=== PATIENT | male | born 1980 | race Hispanic/Latino ===

== ENCOUNTER 2024-09-17 14:45 | Emergency (ER) | payer OTHER ==
[2024-09-17] MEDS ORDERED: Acetaminophen 500 MG TAB ONE (15:37)
== END 2024-09-17 15:50 | disposition home or self-care (01) ==
LOC: ERS 14:45
DX: S93.401A Sprain of unspecified ligament of right ankle, initial encounter (principal); M79.602 Pain in left arm; R07.81 Pleurodynia; W18.09XA Striking against other object with subsequent fall, initial encounter; Y93.89 Activity, other specified
CPT/HCPCS: 99283